=== PATIENT | female | born 1940 | race Caucasian/White ===

== ENCOUNTER 2018-09-07 07:18 | Day surgery (SDC) | payer MEDICARE ==
[~2018-09-07] VITALS: Ht 147.3 cm; Wt 73.3 kg
[~2018-09-07 07:18] MED LIST: Advil200 M1 PO; CEPH500 PO; COLLAGEN ULTRA; Coq-10100 MG PO; Cranberry425 MG PO; FISH1000 PO; Fish Oil 10001000 MG PO; GLUCOSAMINE DA1 EACH PO; HTN MED; LANS30EC PO; LO-DOSE ASPIRIN81 MG PO; LOSA25 PO; METO25ER PO; NIFE30ER PO; PHENA200 PO; PRAV20 PO; PRED5 PO; VITAMIN D32000 UNIT PO; Vitamin C100 MG PO
== END 2018-09-07 10:08 | disposition home or self-care (01) ==
LOC: ORSCSDS 07:18
PROVIDERS: Internal Medicine Gastroenterology
PROC: 0DB68ZX Excision of Stomach, Via Natural or Artificial Opening Endoscopic, Diagnostic (ICD-10-PCS; principal; 2018-09-07 09:00)
PROC: 0DBL8ZX Excision of Transverse Colon, Via Natural or Artificial Opening Endoscopic, Diagnostic (ICD-10-PCS; principal; 2018-09-07 09:00)
PROC: 0DB58ZX Excision of Esophagus, Via Natural or Artificial Opening Endoscopic, Diagnostic (ICD-10-PCS; principal; 2018-09-07 09:00)
DX: K22.70 Barrett's esophagus without dysplasia (principal); D12.3 Benign neoplasm of transverse colon; K31.7 Polyp of stomach and duodenum; K44.9 Diaphragmatic hernia without obstruction or gangrene; K57.30 Diverticulosis of large intestine without perforation or abscess without bleeding; Z86.010 Personal history of colon polyps; I10 Essential (primary) hypertension; E78.5 Hyperlipidemia, unspecified; Z87.891 Personal history of nicotine dependence; Z79.899 Other long term (current) drug therapy
CPT/HCPCS: 88305; 88342; J2704; J7120

== ENCOUNTER 2018-11-15 13:45 | Inpatient (IN) | payer MEDICARE ==
[~2018-11-15] VITALS: Ht 147.3 cm; Wt 74.0 kg
[~2018-11-15 13:45] MED LIST changes: +ANTACID168 MG PO; +ASPI81CH PO
--- NOTE | 2018-11-22 09:15 | NUR ---
PT ADMITTED TO [facility]. AGREES WITH PLANNED SURGERY. LUNG SOUNDS CLEAR. NOZIN TO NARES BILATERALLY.
[2018-11-22] MEDS ORDERED: Zantac150 MG PO (09:47)
--- NOTE | 2018-11-22 09:59 | NUR ---
UP TO BATHROOM TO VOID.
--- NOTE | 2018-11-22 13:21 | NUR ---
PT TO ROOM 221 FROM PACU VIA GURNEY. PT SHAKING AND VERY UNCOMFORTABLE. 18G TO LEFT FA, IVF INFUSING WELL. POLAR PACK TO HIP. DRESSING CLEAN DRY AND INTACT. PAS IN PLACE.
--- NOTE | 2018-11-22 13:40 | NUR ---
VSS. PT MEDICATED WITH TORADIOL IV, PHENERGAN IV, AND DILAUDID IV PER EMAR. IVF INFUSING WELL. FAMILY AT BEDSIDE.
--- NOTE | 2018-11-22 15:25 | NUR ---
OT AT BEDSIDE FOR EVAL.
--- NOTE | 2018-11-22 16:55 | NUR ---
PT MEDICATED WITH TYLENOL PER EMAR.
--- NOTE | 2018-11-22 17:12 | NUR ---
pt out of bed to chair. voided.
--- NOTE | 2018-11-22 17:29 | NUR ---
PHARMACY NOTIFIED OF NEED FOR ANCEF.
--- NOTE | 2018-11-22 17:37 | NUR ---
MEAL ORDERED. TORADOL GIVEN PER EMAR.
--- NOTE | 2018-11-22 17:55 | NUR ---
DINNER TRAY PROVIDED. ANCEF STARTED.
[2018-11-23 04:58] LABS: BASOPHILS ABSOLUTE AUTO 0.02 K/mm3 (0.00-0.23); BASOPHILS PERCENT AUTO 0 % (0-2); EOSINOPHILS ABSOLUTE AUTO 0.01 K/mm3 (0.00-0.68); EOSINOPHILS PERCENT AUTO 0 % (0-6); Hematocrit 28.1 % (33.0-51.0); Hemoglobin 9.3 g/dL (11.5-16.0); IMMATURE GRAN ABSOLUTE AUTO 0.07 K/mm3 (0.00-0.10); IMMATURE GRAN PERCENT AUTO 1 % (0-1); LYMPHOCYTES ABSOLUTE AUTO 1.19 K/mm3 (0.84-5.20); LYMPHOCYTES PERCENT AUTO 9 % (21-46); MONOCYTES ABSOLUTE AUTO 0.96 K/mm3 (0.16-1.47); MONOCYTES PERCENT AUTO 7 % (4-13); Mean Corpuscular HGB 30.7 pg (26.0-34.0); Mean Corpuscular HGB Conc 33.1 g/dL (31.5-36.5); Mean Corpuscular Volume 93 fL (80-100); NEUTROPHILS ABSOLUTE AUTO 10.76 K/mm3 (1.96-9.15); NEUTROPHILS PERCENT AUTO 83 % (41-73); Platelet Count 189 K/mm3 (150-400); RDW Coefficient Variation 13.3 % (11.7-14.2); RDW Standard Deviation 45.8 fL (35.1-46.3); Red Blood Cell Count 3.03 M/mm3 (3.80-5.20); White Blood Cell Count 13.01 K/mm3 (4.00-11.30)
[2018-11-23 05:25] LABS: Anion Gap 6 mmol/L (6-16); Blood Urea Nitrogen 27 mg/dL (8-24); Bun/Creatinine Ratio 29.8 (12.0-20.0); CO2, Blood 26 mmol/L (21-32); Calcium, Blood 8.2 mg/dL (8.5-10.1); Chloride, Blood 106 mmol/L (98-108); Creatinine, Blood 0.91 mg/dL (0.40-1.00); Glomerular Filtration Rate >60 (60-); Glucose, Blood 116 mg/dL (70-99); Magnesium, Blood 2.1 mg/dL (1.6-2.4); Sodium, Blood 138 mmol/L (136-145)
--- NOTE | 2018-11-23 07:10 | NUR ---
REPORT FROM CHRISTIANA CALDERA. ASSUMED PT CARE. PT SITTING UP IN BED WATCHING TV. DENIES NEEDS.
--- NOTE | 2018-11-23 07:15 | NUR ---
DR ALLEN TO ROOM FOR RE-EVAL AND DRESSING CHANGE. PT UP IN CHAIR.
--- NOTE | 2018-11-23 07:45 | NUR ---
BREAKFAST TRAY PROVIDED.
--- NOTE | 2018-11-23 07:51 | NUR ---
SHIFT SUMMARY LYING IN SEMI FOWLERSWITH EYES CLOSED. HAS RESTED WELL THIS SHFT. SHE HAS BEEN PLEASANT AND COOPERATIVE. PAIN HAS BEEN WELL MANAGED PER EMAR. DENIES FURTHER NEEDS OR WANTS AT THIS TIME. SAFETY MEASURES IN PLACE. HAND OFF GIVEN TO Hugo SHANKS RN USING SBAR.
--- NOTE | 2018-11-23 08:45 | NUR ---
PT MEDICATED PER EMAR. ZOFRAN PROVIDED FOR C/O NAUSEA.
--- NOTE | 2018-11-23 08:45 | NUR ---
PT MEDICATED PER EMAR. PHYSICAL THERAPY AT BEDSIDE.
--- NOTE | 2018-11-23 09:02 | NUR ---
PT DOWN TO ORTHO GYM WITH THERAPY.
--- NOTE | 2018-11-23 10:28 | NUR ---
OT IN ROOM WORKING WITH PT.
--- NOTE | 2018-11-23 12:00 | NUR ---
PT UP IN ROOM INDEPENDENTLY, USES WALKER. SITTING IN CHAIR EATING LUNCH AT THIS TIME. C/O SORENESS.
--- NOTE | 2018-11-23 12:17 | NUR ---
PT MEDICATED WITH LOVENOX AND OXY PER EMAR.
[2018-11-23] MEDS ORDERED: ENOX40I SC (12:23)
[2018-11-23] MEDS ORDERED: OXYC5 PO (12:24)
[2018-11-23] MEDS ORDERED: PROM25 PO (12:25)
[2018-11-23] MEDS ORDERED: ROXICODONE5 MG PO (12:37)
--- NOTE | 2018-11-23 13:30 | NUR ---
PT WORKING WITH PT PRIOR TO DC HOME.
--- NOTE | 2018-11-23 14:10 | NUR ---
ALL INSTRUCTIONS REVIEWED WITH PT AND PT SPOUSE. ALL BELONGINGS PACKED. PT PROVIDED WITH 2 AQUACELL.
--- NOTE | 2018-11-23 14:14 | NUR ---
PT ASSISTED INTO WC, ASSISTED OUT TO LOBBY VIA WC. ALL BELONGINGS SENT HOME.
== END 2018-11-23 14:25 | disposition home or self-care (01) | DRG 470 ==
LOC: SURS 11-22 08:49 → PRE IP 11-22 10:45 → SURS 11-22 13:39
PROVIDERS: ADMIT Orthopaedic Surgery
PROC: 0SR904A Replacement of Right Hip Joint with Ceramic on Polyethylene Synthetic Substitute, Uncemented, Open Approach (ICD-10-PCS; principal; 2018-11-22 10:45)
DX: M16.11 Unilateral primary osteoarthritis, right hip (principal); I10 Essential (primary) hypertension; E78.5 Hyperlipidemia, unspecified; K21.9 Gastro-esophageal reflux disease without esophagitis; E66.9 Obesity, unspecified; Z68.34 Body mass index [BMI] 34.0-34.9, adult; Z79.899 Other long term (current) drug therapy; Z87.891 Personal history of nicotine dependence
CPT/HCPCS: 36415; 72170; 80048; 83735; 85025; 88300; 97110; 97116; 97162; 97165; 97530; 97535; C1713; C1776; J0171; J0690; J0735; J1100; J1170; J1650; J1885; J2250; J2370; J2405; J2550; J2704; J2795; J3010; J7120

== ENCOUNTER → 2020-11-24 | Outpatient (CLI) | payer MEDICARE ==
[~2020-11-24] MED LIST changes: +ENOX40I SC; +OXYC5 PO; +PROM25 PO; +ROXICODONE5 MG PO; +Zantac150 MG PO
== END | disposition home or self-care (01) ==
LOC: LAB 14:56 → LAB SHORT 14:56
DX: D18.01 Hemangioma of skin and subcutaneous tissue (principal); L57.0 Actinic keratosis; D48.5 Neoplasm of uncertain behavior of skin
CPT/HCPCS: 88305

== ENCOUNTER 2022-12-19 07:55 | Emergency (ER) | payer MEDICARE ==
[~2022-12-19] VITALS: Ht 147.3 cm; Wt 74.4 kg
[2022-12-19 09:42] LABS: BASOPHILS ABSOLUTE AUTO 0.05 K/mm3 (0.00-0.23); BASOPHILS PERCENT AUTO 1 % (0-2); EOSINOPHILS ABSOLUTE AUTO 0.06 K/mm3 (0.00-0.68); EOSINOPHILS PERCENT AUTO 1 % (0-6); Hematocrit 36.5 % (33.0-51.0); Hemoglobin 12.7 g/dL (11.5-16.0); IMMATURE GRAN ABSOLUTE AUTO 0.03 K/mm3 (0.00-0.10); IMMATURE GRAN PERCENT AUTO 0 % (0-1); LYMPHOCYTES ABSOLUTE AUTO 1.55 K/mm3 (0.84-5.20); LYMPHOCYTES PERCENT AUTO 14 % (21-46); MONOCYTES ABSOLUTE AUTO 0.55 K/mm3 (0.16-1.47); MONOCYTES PERCENT AUTO 5 % (4-13); Mean Corpuscular HGB 31.3 pg (26.0-34.0); Mean Corpuscular HGB Conc 34.8 g/dL (31.5-36.5); Mean Corpuscular Volume 90 fL (80-100); Mean Platelet Volume 10.7 fL (9.1-12.4); NEUTROPHILS ABSOLUTE AUTO 8.77 K/mm3 (1.96-9.15); NEUTROPHILS PERCENT AUTO 80 % (41-73); Platelet Count 227 K/mm3 (150-400); RDW Coefficient Variation 12.8 % (11.7-14.2); Red Blood Cell Count 4.06 M/mm3 (3.80-5.20); White Blood Cell Count 11.01 K/mm3 (4.00-11.30)
[2022-12-19 10:02] LABS: Albumin, Blood 3.7 g/dL (3.4-5.0); Albumin/Globulin Ratio 0.9 (0.8-1.8); Bilirubin, Total 0.5 mg/dL (0.1-1.0); Bun/Creatinine Ratio 30.3 (12.0-20.0); Calcium, Blood 9.4 mg/dL (8.5-10.1); Creatinine, Blood 0.83 mg/dL (0.40-1.00); Globulin, Blood 3.9 g/dL (2.2-4.0); Potassium, Blood 3.8 mmol/L (3.5-5.5); Total Protein, Blood 7.6 g/dL (6.4-8.2)
[2022-12-19 11:17] LABS: Source, Urine Clean Catch
[2022-12-19 11:30] VITALS: BP 112/63
[2022-12-19 11:34] LABS: Appearance, Urine Clear (Clear); Bilirubin, Urine Neg (Neg); Blood, Urine 1+ (Neg); Color, Urine Yellow (P-Yellow); Glucose Qualitative, Urine Neg (Neg); Ketones, Urine Neg (Neg); Leukocyte Esterase, Urine Neg (Neg); Nitrite, Urine Neg (Neg); Protein, Urine Neg (Neg); Specific Gravity, Urine 1.005 (1.003-1.022); Urobilinogen, Urine NORM (Normal)
[2022-12-19 11:47] LABS: Bacteria Rare /hpf; Mucus Light (0-Heavy); Squamous Epithelial Cells Rare /hpf (Few); White Blood Cells, Urine 0-2 /hpf (0-5)
== END 2022-12-19 12:16 | disposition home or self-care (01) ==
LOC: ER 07:55
PROVIDERS: Student in an Organized Health Care Education/Training Program
DX: R10.84 Generalized abdominal pain (principal); M54.50 Low back pain, unspecified; I10 Essential (primary) hypertension; I25.10 Atherosclerotic heart disease of native coronary artery without angina pectoris; E78.5 Hyperlipidemia, unspecified; Z91.048 Other nonmedicinal substance allergy status; Z79.82 Long term (current) use of aspirin; Z79.01 Long term (current) use of anticoagulants; Z79.899 Other long term (current) drug therapy; Z87.891 Personal history of nicotine dependence
CPT/HCPCS: 71046; 74177; 80053; 81001; 83690; 84484; 85025; 93005; 93010; 96374-59; 99284-25; A9270; J1885; Q9967